=== PATIENT | female | born 1950 | race Caucasian/White ===

== ENCOUNTER 2016-10-23 10:23 | Emergency (ER) | payer BC ==
[2016-10-23] MEDS ORDERED: Ondansetron INJ* 2 MG/ML VIAL IV ONE (10:40)
[2016-10-23] MEDS ORDERED: Aspirin Low Dose CHEW TAB* 81 MG PO ONE ×2 (10:40→10:53)
[2016-10-23] MEDS ORDERED: NS 0.9% 1000 ML* 1,000 ML IV SCH (10:45)
[2016-10-23] MEDS ORDERED: Aspirin Low Dose CHEW TAB* 81 MG ONE (10:47)
--- NOTE | 2016-10-23 10:51 | UC ---
Dizzy HPI HPI Summary: dizziness for 2 days with vomiting---today she has developed chest pressure 1-2 /10, no sob - History Of Current Complaint Chief Complaint: UCDizziness Stated Complaint: DIZZY,VOMITING,CHEST-BURNING FEELING Time Seen by Provider: 10/23/16 10:31 Hx Obtained From: Patient ?: No Onset/Duration: Sudden Onset, Lasting Days - 2, Worse Since - this morning Timing: Constant Severity Initially: Moderate Severity Currently: Moderate Pain Intensity: 2 Pain Scale Used: 0-10 Numeric Character: Head Spinning, Room Spinning Aggravating Factor(s): Position Change Alleviating Factor(s): Rest, Lying Down Associated Signs And Symptoms: Positive: Nausea, Vomiting, Chest Pain - Allergies/Home Medications Allergies/Adverse Reactions: Allergies Allergy/AdvReac Type Severity Reaction Status Date / Time Ciprofloxacin [From Cipro] Allergy Mild Hives Verified 08/19/13 20:06 Erythromycin Allergy Mild Hives Verified 08/19/13 20:06 Ibuprofen Allergy Mild Hives Verified 08/19/13 20:06 Naproxen [From Aleve] Allergy Mild Hives Verified 08/19/13 20:06 NSAIDs Allergy Mild Hives Verified 11/10/14 20:37 Sulfamethoxazole Allergy Mild Hives Verified 08/19/13 20:06 w/Trimethoprim [From Bactrim] Home Medications: Home Medications Aspirin [Serafin [employer] Aspirin] 81 mg PO 10/23/16 [History] PMH/Surg Hx/FS Hx/Imm Hx Previously Healthy: No Cardiovascular History Of: Reports: Cardiac Disorders - bundle branch block Psychological History Of: Reports: Depression Cancer History Of: Denies: Breast Cancer - Surgical History Surgical History: Yes Surgery Procedure, Year, and Place: 1989. Complete HYESTERECTOMY 2002. Left sided carpal tunnel. tubal - Family History Known Family History: Positive: Cardiac Disease - Social History Occupation: Retired Lives: With Family Alcohol Use: None Substance Use Type: None Smoking Status (MU): Never Smoked Tobacco Have You Smoked in the Last Year: No - Immunization History Most Recent Influenza Vaccination: 2012 Review of Systems Constitutional: Negative Skin: Negative Eyes: Negative ENT: Negative Respiratory: Negative Cardiovascular: Chest Pain Gastrointestinal: Vomiting Genitourinary: Negative Motor: Negative Neurovascular: Negative Musculoskeletal: Negative Neurological: Negative Psychological: Negative All Other Systems Reviewed And Are Negative: Yes Physical Exam Triage Information Reviewed: Yes Appearance: Well-Nourished, Ill-Appearing, Pain Distress Vital Signs: Initial Vital Signs Temp 97.3 F 10/23/16 10:32 Pulse 66 10/23/16 10:32 Resp 18 10/23/16 10:32 BP 125/75 10/23/16 10:32 Pulse Ox 97 10/23/16 10:32 Vital Signs Reviewed: Yes Eye Exam: Normal Eyes: Positive: Conjunctiva Clear ENT Exam: Normal ENT: Positive: Normal ENT inspection, Hearing grossly normal. Negative: Nasal congestion, Nasal drainage, Trismus, Muffled/hoarse voice Dental Exam: Normal Neck exam: Normal Neck: Positive: Supple, Nontender, No Lymphadenopathy Respiratory Exam: Normal Respiratory: Positive: Chest non-tender, Lungs clear, Normal breath sounds, No respiratory distress, No accessory muscle use Cardiovascular Exam: Normal Cardiovascular: Positive: RRR, No Murmur, Pulses Normal, Brisk Capillary Refill Abdominal Exam: Normal Abdomen Description: Positive: No Organomegaly, Soft, Other: - epigastric tenderness Bowel Sounds: Positive: Present Musculoskeletal Exam: Normal Musculoskeletal: Positive: Strength Intact, ROM Intact, No Edema Neurological Exam: Normal Neurological: Positive: Alert, Muscle Tone Normal Psychological Exam: Normal Skin Exam: Normal Dizzy Course/Dx - Course Course Of Treatment: s/l, zofran, asprin, ekg, [place] [facility] [place] - Differential Dx/Diagnosis Differential Diagnosis/HQI/PQRI: Benign Paroxysmal Positional Vertigo, Coronary Artery Disease, Meniere's Disease, Transient Ischemic Attack Provider Diagnoses: Chest pain, vertigo - Physician Notifications Discussed Patient Care With: Shelby EARL Time Discussed With Above Provider: 10:55 Instructed by Provider To: Transfer Discharge - Discharge Plan Condition: Guarded Disposition: TRANS [facility]HER [facility] FAC Referrals: Opal Persaud MD [Primary Care Provider] -
[2016-10-23 10:58] VITALS: BP 153/82
[2016-10-24] MEDS ORDERED: Aspirin Low Dose CHEW TAB* 81 MG PO ONE (09:00)
== END 2016-10-23 11:05 | disposition short-term general hospital (02) ==
LOC: UCEAST 10:23
DX: R07.89 Other chest pain (principal); R42 Dizziness and giddiness; R11.2 Nausea with vomiting, unspecified; I45.10 Unspecified right bundle-branch block; F32.9 Major depressive disorder, single episode, unspecified; Z90.710 Acquired absence of both cervix and uterus; Z88.6 Allergy status to analgesic agent; Z88.1 Allergy status to other antibiotic agents; Z88.2 Allergy status to sulfonamides
CPT/HCPCS: 93005; 96360; 96361; 96376; 99213; A9270-GY; G0463; J2405

== ENCOUNTER 2016-10-23 11:21 | Emergency (ER) | payer BC ==
[2016-10-23] MEDS ORDERED: Meclizine TAB* 12.5 MG PO ONE (11:33)
[2016-10-23 11:43] LABS: Hematocrit 50 % (35-47); Hemoglobin 16.6 g/dl (12.0-16.0); Mean Corpuscular HGB Conc 33 g/dl (31-36); Mean Corpuscular Hemoglobin 30 pg (27-31); Mean Corpuscular Volume 89 fL (80-97); Mean Platelet Volume 9 um3 (7.4-10.4); Red Blood Count 5.61 10^6/ul (4.0-5.4); Red Cell Distribution Width 14 % (10.5-15); White Blood Count 7.6 10^3/ul (3.5-10.8)
[2016-10-23 11:57] LABS: Albumin 3.9 g/dL (3.2-5.2); BUN/Creatinine Ratio 15.3 (8-20); Calcium 9.6 mg/dL (8.6-10.3); EGFR African American 104.9 (>60); EGFR Non-African American 81.6 (>60); Globulin 3.3 g/dL (2-4); Magnesium 1.8 mg/dL (1.9-2.7); Potassium 4.1 mmol/L (3.5-5.0); Total Bilirubin 0.6 mg/dL (0.2-1.0); Total Protein 7.2 g/dL (6.4-8.9); Troponin I 0.01 ng/mL (<0.04)
--- NOTE | 2016-10-23 12:06 | RAD ---
Indication: Headache, dizziness. Comparison: May 15, 2011 Technique: Noncontrast CT vertex of skull through foramen magnum. Report: The sulci, ventricles, and basal cisterns are normal for age. Ramos matter white matter differentiation is preserved without evidence for edema. No intra or extra axial hemorrhage, mass, or fluid collection detected. Unremarkable visualized orbital contents. Indolent thickening of the inner table of the frontal bone. Advanced arthropathy at the temporomandibular joints. No suspicious focal osseous lesions. Unremarkable scalp. The visualized paranasal sinuses and mastoid air spaces are clear. IMPRESSION: No acute intracranial process evident. Negative unenhanced CT of the brain for age.
[2016-10-23 12:10] LABS: TSH (Thyroid Stimulating Horm) 2.19 mcIU/mL (0.34-5.60)
[2016-10-23 12:53] LABS: Urine Bacteria Absent (Absent); Urine Bilirubin Negative (Negative); Urine Glucose Negative (Negative); Urine Nitrite Negative (Negative)
[2016-10-23] MEDS ORDERED: Ondansetron INJ* 2 MG/ML VIAL IV ONE (14:00)
[2016-10-23] MEDS ORDERED: Metoclopramide IV* 5 MG/ML 2 ML VIAL IV ONE (14:03)
[2016-10-23] MEDS ORDERED: diPHENhydraMINE IV* 50 MG/ML 1 ml VIAL (BENADRYL) IV ONE (14:03)
[2016-10-23] MEDS ORDERED: NS 0.9% 1000 ML* 2,000 ML IV ONE (14:03)
[2016-10-23] MEDS ORDERED: Magnesium Sulfate 1 GM IV* 1 GM/100 ML BAG IV ONE (14:30)
--- NOTE | 2016-10-23 16:51 | RAD ---
HISTORY: Vertigo, headache COMPARISONS: Head CT dated October 23, 2016 TECHNIQUE: The following sequences were obtained of the head: Sagittal T1-weighted images, axial T2-weighted images, axial FLAIR images, axial susceptibility weighted images, axial T1-weighted images. Additionally, axial diffusion-weighted images were obtained with calculated apparent diffusion coefficients. FINDINGS: HEMORRHAGE/INFARCT: There is no hemorrhage or acute infarct. MASSES/SHIFT: There is no mass or shift. EXTRA-AXIAL SPACES/MENINGES: There are no extra-axial fluid collections. SULCI AND VENTRICLES: The sulci and ventricles are normal in size and position for the patient's stated age. CEREBRUM: There are several, small scattered small foci of elevated T2/FLAIR signal within the periventricular and subcortical white matter. BRAINSTEM: There are no focal parenchymal abnormalities. CEREBELLUM: There are no focal parenchymal abnormalities. The cerebellar tonsils are normal in size and position. SELLA: The sella is normal. PINEAL: The pineal region is clear. CP ANGLE/TEMPORAL BONES: The labyrinthine structures are grossly normal. VESSELS: Normal flow-voids are noted within the visualized vertebral vasculature. DIFFUSION ABNORMALITIES: There are no diffusion abnormalities. PARANASAL SINUSES/MASTOIDS: The paranasal sinuses are clear. ORBITS: The orbits are unremarkable. BONES AND SOFT TISSUE: No bone or soft tissue abnormalities are noted. OTHER: None IMPRESSION: THERE ARE SEVERAL, SCATTERED, SMALL FOCI OF ELEVATED T2/FLAIR SIGNAL WITHIN THE PERIVENTRICULAR AND SUBCORTICAL WHITE MATTER. WHILE THESE FINDINGS ARE NONSPECIFIC, THEY CAN BE SEEN IN ASSOCIATION WITH MIGRAINE HEADACHE, THE SEQUELA OF PREVIOUS INFECTION OR INFLAMMATION, AND CHRONIC SMALL VESSEL ISCHEMIA. DEMYELINATING DISEASE IS ALSO WITHIN THE DIFFERENTIAL, BUT IS CONSIDERED LESS LIKELY IN THE ABSENCE OF THE APPROPRIATE CLINICAL PRESENTATION.
--- NOTE | 2016-10-23 18:04 | CONS ---
NEUROLOGY CONSULTATION: DATE OF CONSULTATION: 10/23/16 LOCATION: She is in the emergency room. REFERRING PHYSICIAN: Dr. Chatterjee. CHIEF COMPLAINT: Headache, dizziness. HISTORY OF PRESENT ILLNESS: Lizette Wyatt is a 66-year-old right-handed woman who was in her usual status of health when she woke up Saturday morning with room- spinning vertigo. She had nausea and vomiting. She spent most of the day Saturday trying to hold very still, but continued to have quite a bit of vomiting that day. Sometime yesterday, she realized she had a headache as well. She is not sure when it started, but she has a pounding headache today and came to the emergency room. Her dizziness and vertigo have improved somewhat; if she holds very still, then she does not vomit. The last vomiting was yesterday. She has not noticed any change in hearing or vision or speech. No numbness or weakness in the limbs. There is no prior history of vertigo, but there is a history of migraine. I saw her in the emergency room in 2010 with visual scotomas and bad headache with nausea and prior history of migraines as well. She said she has not had migraines for years since she got . She still gets occasional headaches, but they are infrequent. There is no history of head trauma. She has not had any recent viral illnesses. She and her had flu-like syndrome in July and August that lasted weeks. PAST MEDICAL HISTORY: Notable for migraines, right bundle branch block with a negative cardiac workup, depression. MEDICATIONS: At home are: 1. Fluoxetine 20 mg p.o. every day. 2. Aspirin 81 mg p.o. every day. ALLERGIES: She is allergic to CIPROFLOXACIN, NONSTEROIDAL ANTIINFLAMMATORY DRUGS, and ERYTHROMYCIN. FAMILY HISTORY: Noncontributory. REVIEW OF SYSTEMS: Notable for retrosternal chest pains since she started vomiting. She does not smoke. No shortness of breath. No recent fevers or chills. No sore throats or upper respiratory symptoms. No falls although she had been unsteady since her vertigo started. No tinnitus or rushing sounds in her ears. No fullness in her ears. She has a dry nose and occasionally epistaxis, which she attributes to that. She has not vomited any blood. No double vision. PHYSICAL EXAMINATION: She is well-nourished and appears well hydrated. Temperature 98.3 temporally, blood pressure 115/78, heart rate 60 and regular. Respiratory rate is 18 and oxygen saturation is 97% on room air. Lungs are clear. Heart is in a regular rate and rhythm without murmurs. There are no cervical bruits. Oral mucosa is moist and there is erythema, a little bit of blood in the upper left oropharynx. Tympanic membranes are clear bilaterally. Neck is supple. Neurologically, pupils react equally from 3.5 to 2 mm. Funduscopic exam and eye movements are normal. There is a few bits of nystagmus in rightward gaze, but it is not sustained. Visual ulloa are full to confrontation. Facial musculature is intact and symmetric. Facial sensation to pin and light touch are symmetric. Speech is clear without dysarthria and palate rises symmetrically. Tongue protrudes in the midline. Hearing is intact bilaterally. Motor exam reveals normal muscle tone and strength in the limbs proximally and distally in upper and lower extremities. There is no pronator drift. There is no rest, sustention, or action tremor. Finger taps are normal in the hands. [id number] maneuver is normal bilaterally. Sensory exam in the limbs is intact to light touch, pin, and vibration. I did not attempt to ambulate her. Reflexes are brisk and symmetric in upper and lower extremities and plantar responses are flexor bilaterally. She is alert and oriented and a good detailed historian. Memory is intact and language is fluent. She had adequate attention, concentration, and fund of knowledge. DIAGNOSTIC STUDIES/LABORATORY DATA: Includes a CT scan of the brain, which was reviewed and is interpreted as normal. I reviewed the images and I agree. Laboratory data is notable for a chemistry profile with an elevated lactic acid at 2.6, glucose elevated at 166, magnesium borderline low at 1.8. TSH and the rest of the chemistry profile is normal. CBC is notable for an elevated hemoglobin at 16.6 and hematocrit at 50%. White blood cell count is normal at 7.6. Urinalysis is notable for 1+ white blood cells and leukocyte esterase. IMPRESSION: Probable vestibular neuronitis and subsequent migraine. Given that , however, I would recommend an MRI of the brain to rule out a cerebellar stroke given the headache. If that is negative, then I think she can just be treated symptomatically. I would recommend IV hydration, IV magnesium, and antiemetics, as well as analgesics. Further recommendations will depend upon the results of her imaging. [id number]/[facility] #: [id number] MIKE
[2016-10-23 18:15] VITALS: BP 107/66
--- NOTE | 2016-10-24 13:36 | ED ---
Clotilde Hodges Matthew, scribed for Immanuel Chatterjee MD on 10/23/16 at 1300 . Dizziness - HPI Summary HPI Summary: A 66 y/o female presents to the ED with dizziness since 10/21. The patient states that she woke-up with the dizziness on 10/21 and had associated vomiting at that time. She remained in bed throughout the day and developed a headache on 10/22. At that time, the headache was described as pressure and located diffusely, but worse in the frontal region. She continued to having dizziness and lightheadedness. Last night she then developed palpitations, which woke her up. She attempt to go back to sleep, however, the palpitations woke her up again. She also developed mid-sternal chest pain at that time. This morning she was seen at [facility], where her headache suddenly increased in severity per EMS. Currently, she is unable to differentiate between the headache and the dizziness. Associated symptoms also include chest pain rated 1-2/10 in severity , located left anteriorly since last night, and described as burning which eases to aching. The chest pain is worse when her headache worsens. The patient last ate this morning. - History Of Current Complaint Chief Complaint: EDDizziness Stated Complaint: CHEST PAIN Hx Obtained From: Patient Onset/Duration: Still Present Timing: Constant Severity Initially: Moderate Severity Currently: Moderate Character: Dizzy Alleviating Factor(s): Nothing Associated Signs And Symptoms: Positive: Nausea, Vomiting, Chest Pain, Palpitations, Other: - Headache - Allergies/Home Medications Allergies/Adverse Reactions: Allergies Allergy/AdvReac Type Severity Reaction Status Date / Time Ciprofloxacin [From Cipro] Allergy Mild Hives Verified 10/23/16 11:33 Erythromycin Allergy Mild Hives Verified 10/23/16 11:33 Ibuprofen Allergy Mild Hives Verified 10/23/16 11:33 Naproxen [From Aleve] Allergy Mild Hives Verified 10/23/16 11:33 Sulfamethoxazole Allergy Mild Hives Verified 10/23/16 11:33 w/Trimethoprim [From Bactrim] PMH/Surg Hx/FS Hx/Imm Hx Psychiatric History: Reports: Hx Depression - Surgical History Surgery Procedure, Year, and Place: 1989. Complete HYESTERECTOMY 2002. Left sided carpal tunnel. tubal Infectious Disease History: No Infectious Disease History: Denies: Hx Clostridium Difficile, Hx Hepatitis, Hx Human Immunodeficiency Virus (HIV), Hx of Known/Suspected MRSA, Hx Shingles, Hx Tuberculosis, Hx Known/ Suspected VRE, Hx Known/Suspected VRSA, History Other Infectious Disease, Traveled Outside the [place] in Last 30 Days - Family History Known Family History: Positive: Cardiac Disease - Social History Alcohol Use: None Substance Use Type: Reports: None Smoking Status (MU): Never Smoked Tobacco Have You Smoked in the Last Year: No Review of Systems Constitutional: Negative Eyes: Negative ENT: Negative Positive: Palpitations, Chest Pain - left anterior Respiratory: Negative Gastrointestinal: Negative Positive: Vomiting, Nausea Genitourinary: Negative Musculoskeletal: Negative Skin: Negative Neurological: Other - Dizziness, Lightheadedness Positive: Headache Psychological: Normal All Other Systems Reviewed And Are Negative: Yes Physical Exam Triage Information Reviewed: Yes Vital Signs On Initial Exam: Initial Vitals Temp Pulse Resp BP Pulse Ox 98.3 F 59 18 135/100 98 10/23/16 11:23 10/23/16 11:23 10/23/16 11:23 10/23/16 11:23 10/23/16 11:23 Vital Signs Reviewed: Yes Appearance: Positive: Pain Distress - mild Skin: Positive: Warm, Skin Color Reflects Adequate Perfusion, Dry Head/Face: Positive: Normal Head/Face Inspection Eyes: Positive: Other: - Mild amount of restless horizontal nystagmus ENT: Positive: Normal ENT inspection Neck: Positive: Supple, Nontender Respiratory/Lung Sounds: Positive: Clear to Auscultation, Breath Sounds Present Cardiovascular: Positive: RRR Abdomen Description: Positive: Nontender, Soft Bowel Sounds: Positive: Present Musculoskeletal: Positive: Strength/ROM Intact Neurological: Positive: Alert, Oriented to Person Place, Time Diagnostics - Vital Signs Vital Signs Temp Pulse Resp BP Pulse Ox 10/23/16 11:26 58 99 10/23/16 11:25 98.3 F 57 24 135/100 98 10/23/16 11:24 135/100 10/23/16 11:23 98.3 F 59 18 135/100 98 - Laboratory Lab Results: Lab Results 10/23/16 10/23/16 10/23/16 Range/Units 10:45 10:45 10:45 WBC 7.6 (3.5-10.8) 10^3/ul RBC 5.61 H (4.0-5.4) 10^6/ul Hgb 16.6 H (12.0-16.0) g/dl Hct 50 H (35-47) % MCV 89 (80-97) fL MCH 30 (27-31) pg MCHC 33 (31-36) g/dl RDW 14 (10.5-15) % Plt Count 268 (150-450) 10^3/ul MPV 9 (7.4-10.4) um3 Neut % (Auto) 56.4 (38-83) % Lymph % (Auto) 33.6 (25-47) % Pima % (Auto) 7.3 (1-9) % Eos % (Auto) 2.0 (0-6) % Baso % (Auto) 0.7 (0-2) % Absolute Neuts (auto) 4.3 (1.5-7.7) 10^3/ul Absolute Lymphs (auto) 2.5 (1.0-4.8) 10^3/ul Absolute Monos (auto) 0.6 (0-0.8) 10^3/ul Absolute Eos (auto) 0.1 (0-0.6) 10^3/ul Absolute Basos (auto) 0.1 (0-0.2) 10^3/ul Absolute Nucleated RBC 0.05 10^3/ul Nucleated RBC % 0.7 Sodium 137 (133-145) mmol/L Potassium 4.1 (3.5-5.0) mmol/L Chloride 106 (101-111) mmol/L Carbon Dioxide 22 (22-32) mmol/L Anion Gap 9 (2-11) mmol/L BUN 11 (6-24) mg/dL Creatinine 0.72 (0.51-0.95) mg/dL Est GFR ( Amer) 104.9 (>60) Est GFR (Non-Af Amer) 81.6 (>60) BUN/Creatinine Ratio 15.3 (8-20) Glucose 166 H (70-100) mg/dL Lactic Acid 2.6 H* (0.5-2.0) mmol/L Calcium 9.6 (8.6-10.3) mg/dL Magnesium 1.8 L (1.9-2.7) mg/dL Total Bilirubin 0.60 (0.2-1.0) mg/dL AST 39 (13-39) U/L ALT 35 (7-52) U/L Alkaline Phosphatase 102 (34-104) U/L Troponin I 0.01 (<0.04) ng/mL Total Protein 7.2 (6.4-8.9) g/dL Albumin 3.9 (3.2-5.2) g/dL Globulin 3.3 (2-4) g/dL Albumin/Globulin Ratio 1.2 (1-3) TSH 2.19 (0.34-5.60) mcIU/mL Urine Color Urine Appearance Urine pH (5-9) Ur Specific [place] (1.010-1.030) Urine Protein (Negative) Urine Ketones (Negative) Urine Blood (Negative) Urine Nitrate (Negative) Urine Bilirubin (Negative) Urine Urobilinogen (Negative) Ur Leukocyte Esterase (Negative) Urine WBC (Auto) (Absent) Urine RBC (Auto) (Absent) Ur Squamous Epith Cells (Absent) Urine Bacteria (Absent) Urine Glucose (Negative) Urine Ascorbic Acid (Negative) 10/23/16 Range/Units 12:35 WBC (3.5-10.8) 10^3/ul RBC (4.0-5.4) 10^6/ul Hgb (12.0-16.0) g/dl Hct (35-47) % MCV (80-97) fL MCH (27-31) pg MCHC (31-36) g/dl RDW (10.5-15) % Plt Count (150-450) 10^3/ul MPV (7.4-10.4) um3 Neut % (Auto) (38-83) % Lymph % (Auto) (25-47) % Pima % (Auto) (1-9) % Eos % (Auto) (0-6) % Baso % (Auto) (0-2) % Absolute Neuts (auto) (1.5-7.7) 10^3/ul Absolute Lymphs (auto) (1.0-4.8) 10^3/ul Absolute Monos (auto) (0-0.8) 10^3/ul Absolute Eos (auto) (0-0.6) 10^3/ul Absolute Basos (auto) (0-0.2) 10^3/ul Absolute Nucleated RBC 10^3/ul Nucleated RBC % Sodium (133-145) mmol/L Potassium (3.5-5.0) mmol/L Chloride (101-111) mmol/L Carbon Dioxide (22-32) mmol/L Anion Gap (2-11) mmol/L BUN (6-24) mg/dL Creatinine (0.51-0.95) mg/dL Est GFR ( Amer) (>60) Est GFR (Non-Af Amer) (>60) BUN/Creatinine Ratio (8-20) Glucose (70-100) mg/dL Lactic Acid (0.5-2.0) mmol/L Calcium (8.6-10.3) mg/dL Magnesium (1.9-2.7) mg/dL Total Bilirubin (0.2-1.0) mg/dL AST (13-39) U/L ALT (7-52) U/L Alkaline Phosphatase (34-104) U/L Troponin I (<0.04) ng/mL Total Protein (6.4-8.9) g/dL Albumin (3.2-5.2) g/dL Globulin (2-4) g/dL Albumin/Globulin Ratio (1-3) TSH (0.34-5.60) mcIU/mL Urine Color Yellow Urine Appearance Clear Urine pH 6.0 (5-9) Ur Specific [place] 1.017 (1.010-1.030) Urine Protein Negative (Negative) Urine Ketones Negative (Negative) Urine Blood Negative (Negative) Urine Nitrate Negative (Negative) Urine Bilirubin Negative (Negative) Urine Urobilinogen Negative (Negative) Ur Leukocyte Esterase 1+ H (Negative) Urine WBC (Auto) 1+(6-10/hpf) H (Absent) Urine RBC (Auto) Absent (Absent) Ur Squamous Epith Cells Present H (Absent) Urine Bacteria Absent (Absent) Urine Glucose Negative (Negative) Urine Ascorbic Acid * H (Negative) Result Diagrams: 10/23/16 10:45 10/23/16 10:45 Lab Statement: Any lab studies that have been ordered have been reviewed, and results considered in the medical decision making process. - CT Brain CT CT Interpretation: No Acute Changes - IMPRESSION: No acute intracranial process evident. Negative unenhanced CT of the brain for age. CT Interpretation Completed By: Radiologist Brain MRI CT Interpretation: Positive (See Comments) - IMPRESSION: THERE ARE SEVERAL, SCATTERED, SMALL FOCI OF ELEVATED T2/FLAIR SIGNAL WITHIN THE PERIVENTRICULAR AND SUBCORTICAL WHITE MATTER. WHILE THESE FINDINGS ARE NONSPECIFIC, THEY CAN BE SEEN IN ASSOCIATION WITH MIGRAINE HEADACHE, THE SEQUELA OF PREVIOUS INFECTION OR INFLAMMATION, AND CHRONIC SMALL VESSEL ISCHEMIA. DEMYELINATING DISEASE IS ALSO WITHIN THE DIFFERENTIAL, BUT IS CONSIDERED LESS LIKELY IN THE ABSENCE OF THE APPROPRIATE CLINICAL PRESENTATION. CT Interpretation Completed By: Radiologist - EKG 11:17 Cardiac Rate: NL - 61 bpm EKG Rhythm: Sinus Rhythm ST Segment: Non-Specific EKG Interpretation: RBBB EKG Comparison: No Significant Change - 07/11/15 Dizzy Course/Dx - Course Course Of Treatment: Ms. Wyatt presented C/O vertigo and a MONTESINOS for a day or so but with sudden worsening just [employer]. I was concerned for a central event and her W/U was negative. Dr. Laws was consulted, saw her and felt that it was migrainous. He recommended an MR which was negative and she had complete improvement with my typical migraine 'cocktail' of toradol, benadryl, reglan and IV fluids. - Diagnoses Provider Diagnoses: Vertigo, Migraine headache Discharge - Discharge Plan Condition: Stable Disposition: HOME Prescriptions: Meclizine TAB* [Antivert 12.5 TAB*] 25 mg PO TID PRN #20 tab PRN Reason: Dizziness Patient Education Materials: Meclizine (By mouth), Migraine Headache (ED), Vertigo (ED) Referrals: Opal Persaud MD [Primary Care Provider] - 2 Days Additional Instructions: Please follow-up with your primary care physician. The documentation as recorded by the Clotilde aggarwal Matthew accurately reflects the service I personally performed and the decisions made by me, Immanuel Chatterjee MD.
== END 2016-10-23 18:10 | disposition home or self-care (01) ==
LOC: ED 11:21
DX: G43.909 Migraine, unspecified, not intractable, without status migrainosus (principal); R11.2 Nausea with vomiting, unspecified; R07.9 Chest pain, unspecified; R00.2 Palpitations; R51 Headache; R42 Dizziness and giddiness
CPT/HCPCS: 36415; 70450; 70551; 80053; 81003; 81015; 83605; 83735; 84443; 84484; 85025; 87086; 93005; 96365; 96366; 99283; A9270-GY; J1200; J2405

== ENCOUNTER 2019-02-22 10:47 | Emergency (ER) | payer MEDICARE ==
[2019-02-22 11:11] VITALS: BP 116/67
--- NOTE | 2019-02-22 11:47 | UC ---
Respiratory Complaint HPI - HPI Summary HPI Summary: Pt presents with c/o worsening cough, chest and nasal congestion, malaise and bronchospasm X 5 days. - History of Current Complaint Chief Complaint: UCRespiratory Stated Complaint: COUGH Time Seen by Provider: 02/22/19 11:42 Hx Obtained From: Patient ?: No Onset/Duration: Gradual Onset, Lasting Days, Still Present, Worse Since - onset Timing: Constant Severity Initially: Mild Severity Currently: Moderate Pain Intensity: 8 Character: Cough: Productive Aggravating Factors: Exertion, Deep Breaths, Recumbent Position Associated Signs And Symptoms: Positive: Chills, Wheezing, URI, Nasal Congestion - Risk Factors Pulmonary Embolism Risk Factors: Negative Cardiac Risk Factors: Diabetes Pseudomonas Risk Factors: Chronic Lung Disease Tuberculosis Risk Factors: Diabetes - Allergies/Home Medications Allergies/Adverse Reactions: Allergies Allergy/AdvReac Type Severity Reaction Status Date / Time amoxicillin [From Augmentin] Allergy Hives/Diff. Verified 02/22/19 11:07 Breathing/I tching ciprofloxacin Allergy Hives Verified 02/22/19 11:07 clavulanic acid Allergy Hives/Diff. Verified 02/22/19 11:07 [From Augmentin] Breathing/I tching erythromycin base Allergy Hives Verified 02/22/19 11:07 ibuprofen [From Motrin] Allergy Hives Verified 02/22/19 11:07 naproxen [From Aleve] Allergy Hives Verified 02/22/19 11:07 Penicillins Allergy Hives Verified 02/22/19 11:07 sulfamethoxazole Allergy Hives Verified 02/22/19 11:07 [From Bactrim] trimethoprim [From Bactrim] Allergy Hives Verified 02/22/19 11:07 Home Medications: Home Medications Atorvastatin* [Lipitor 10 MG*] 10 mg PO QPM 02/22/19 [History Confirmed 02/22/19 ] Escitalopram Oxalate [Lexapro 10 mg] 1 tab QPM 02/22/19 [History Confirmed 02/22] metFORMIN* [Glucophage 500 MG TAB *] 500 mg PO DAILY 02/22/19 [History Confirmed 02/22/19] PMH/Surg Hx/FS Hx/Imm Hx Previously Healthy: Yes Endocrine History: Diabetes Cardiovascular History: Cardiac Disease Respiratory History: Asthma - Surgical History Surgical History: Yes Surgery Procedure, Year, and Place: 1989. Complete HYESTERECTOMY 2003. Left sided carpal tunnel. tubal - Family History Known Family History: Positive: Cardiac Disease - Social History Occupation: Retired Lives: With Family Alcohol Use: None Substance Use Type: None Smoking Status (MU): Never Smoked Tobacco Have You Smoked in the Last Year: No - Immunization History Most Recent Influenza Vaccination: 2012 Most Recent Tetanus Shot: unknown Review of Systems All Other Systems Reviewed And Are Negative: Yes Constitutional: Positive: Chills, Fatigue Skin: Positive: Negative Eyes: Positive: Negative ENT: Positive: Nasal Discharge, Sinus Congestion Respiratory: Positive: Shortness Of Breath, Cough Cardiovascular: Positive: Negative Gastrointestinal: Positive: Negative Genitourinary: Positive: Negative Motor: Positive: Negative Neurovascular: Positive: Negative Musculoskeletal: Positive: Negative Neurological: Positive: Negative Psychological: Positive: Negative Is Patient Immunocompromised?: No Physical Exam Triage Information Reviewed: Yes Appearance: Ill-Appearing Vital Signs: Initial Vital Signs Temp 98.1 F 02/22/19 11:07 Pulse 84 02/22/19 11:07 Resp 20 02/22/19 11:07 BP 116/67 02/22/19 11:07 Pulse Ox 98 02/22/19 11:07 Vital Signs Reviewed: Yes Eye Exam: Normal ENT: Positive: Nasal congestion Dental Exam: Normal Neck exam: Normal Respiratory: Positive: Wheezing Cardiovascular Exam: Normal Musculoskeletal Exam: Normal Neurological Exam: Normal Psychological Exam: Normal Skin Exam: Normal Respiratory Course/Dx - Differential Dx/Diagnosis Differential Diagnosis/HQI/PQRI: Bronchitis, Exacerbation Of COPD Provider Diagnosis: Bronchitis Discharge ED - Sign-Out/Discharge Documenting (check all that apply): Patient Departure All imaging exams completed and their final reports reviewed: No Studies - Discharge Plan Condition: Stable Disposition: HOME Prescriptions: Albuterol HFA INHALER* [Ventolin HFA Inhaler*] 1 - 2 puff INH Q4H PRN #1 mdi PRN Reason: Sob/Wheezing Benzonatate CAP* [Tessalon 100 MG CAP*] 200 mg PO Q8H PRN #30 cap PRN Reason: Cough DOXYcycline CAP(*) [DOXYcycline 100MG CAP(*)] 100 mg PO Q12H #20 cap predniSONE TAB* [Deltasone 20 MG TAB*] 20 mg PO DAILY #4 tab Patient Education Materials: Acute Bronchitis (ED) Referrals: Opal Persaud MD [Primary Care Provider] - If Needed - Billing Disposition and Condition Condition: STABLE Disposition: Home
== END 2019-02-22 11:57 | disposition home or self-care (01) ==
LOC: UCCORT 10:47
DX: J40 Bronchitis, not specified as acute or chronic (principal); E11.9 Type 2 diabetes mellitus without complications; Z79.84 Long term (current) use of oral hypoglycemic drugs
CPT/HCPCS: 99212; G0463